=== PATIENT | male | born 1950 | race Caucasian/White ===

== ENCOUNTER 2016-09-16 10:54 | Emergency (ER) | payer OTHER, MEDICARE ==
[~2016-09-16] VITALS: Ht 175.3 cm; Wt 81.5 kg
[~2016-09-16 10:54] MED LIST: JUICE PLUS PO; OMEP20CA9 PO
[2016-09-16 11:08] VITALS: TEMP 36.6; Ht 175.3 cm; Wt 81.5 kg
[2016-09-16] MEDS ORDERED: NUTR-218 PO (11:25)
[2016-09-16] MEDS ORDERED: FERR1TAB23 PO (11:25)
--- NOTE | 2016-09-16 12:23 | EMERGENCY ROOM VISIT NOTE ---
History Report prepared by Wayne: Baron Gonzales Under the Supervision of: Dr. Nba Perry M.D. First contact with patient: 11:59 Chief Complaint: TESTICULAR PAIN Stated Complaint: PAIN IN R TESTICLE Nursing Triage Summary: Triage note: pt reports pain and swelling in right testilce x 2 weeks. History of Present Illness The patient is a 66 year old male who presents to the Emergency Room with complaints of waxing and waning right testicular pain that started a few weeks ago. He thought when the pain started it would go away on its own. He notes that he has been having back problems for the past few weeks and has been seeing a chiropractor. He thought that maybe the symptoms were related. However , he presented to the ED today because the discomfort was worse yesterday and he was very uncomfortable for most of the day. He denies any urinary symptoms or difficulty moving his bowels at this time. Source of History: patient Onset: past few weeks Position: other (right testicle) Timing: waxes/wanes Associated Symptoms: + back pain, No urinary symptoms Note: Denies: difficulty moving bowels Review of Systems All systems have been listed, reviewed, and are negative other than those previously mentioned. Please see Additional Medical History Sheet. Past Medical & Surgical Medical Problems: (1) Acid reflux Surgical Problems: (1) Melanoma Family History FH: hypertension FH: testicular cancer Heart disease Social History Smoking Status: Never Smoker Marital Status: Housing Status: lives with family Occupation Status: employed Current/Historical Medications Scheduled Ferrous Sulfate (Iron), 325 MG PO DAILY Nutritional Supplements (Juice Plus Fibre), 2 TAB PO BID Omeprazole (Prilosec), 20 MG PO DAILY Allergies Coded Allergies: Bacitracin (Verified Allergy, Unknown, HIVES, 09/16/16) Neomycin (Verified Allergy, Unknown, HIVES, 09/16/16) Polymyxin B (Verified Allergy, Unknown, HIVES, 09/16/16) Physical Exam Vital Signs Date Time Temp Pulse Resp B/P Pulse Ox O2 Delivery O2 Flow Rate FiO2 09/16/16 13:15 60 16 131/93 98 Room Air 09/16/16 11:08 36.6 60 18 159/82 96 Room Air Physical Exam GENERAL: Patient awake, alert, oriented x 3. Patient follows commands. Patient does not appear toxic. Patient is adequately hydrated and well- nourished. SKIN: No erythema, pallor, cyanosis or rash HEENT: Normal head, pupils equal, reactive to light and accommodation. Neck: Without adenopathy, no neck vein distention. LUNGS: Clear to auscultation. No wheezes, no rales, no rhonchi. HEART: No murmurs. No gallops. No rubs ABDOMEN: No masses, no rebound, no hepatomegaly or splenomegaly. BACK: Patient has some vague tenderness over lower lumbar spine, no step-offs, no point tenderness. GENITALIA: High-riding right testicle with some tenderness and questionable hernia on right side. No color changes to the skin. No urethral discharge. EXTREMITIES: No signs of trauma. No pedal or pretibial edema. No calf or thigh tenderness. NEUROLOGIC: Cranial nerves II-XII within normal limits. No gross motor sensory function deficits. Medical Decision & Procedures ER Provider Diagnostic Interpretation: US results are interpretations by the radiologist and per my review. SCROTAL ULTRASOUND CLINICAL HISTORY: Right testicular pain. COMPARISON STUDY: None. TECHNIQUE: Grayscale and color and duplex Doppler sonography of the scrotum was performed. FINDINGS: The right testis measures 4.3 x 2.6 x 3.4 cm and the left measures 4.3 x 2.4 x 3.1 cm. Color flow within each testis is symmetric. There is no testicular mass. There is no evidence for epididymitis. There is a small right hydrocele. A fat-containing right inguinal hernia is noted which was partially reducible. IMPRESSION: 1. Normal sonographic appearance of the testes. No evidence of torsion. No testicular mass. 2. No evidence of epididymitis. 3. Small right hydrocele. 4. Partially reducible fat-containing right inguinal hernia. Electronically signed by: Kody Zimmerman M.D. 09/16/2016 1:52 PM Dictated Date/Time: 09/16/2016 1:50 PM Laboratory Results 09/16/16 12:20 09/16/16 12:20 Test 09/16/16 12:20 09/16/16 13:10 Red Blood Count 5.02 M/uL (4.7-6.1) Mean Corpuscular Volume 83.7 fL (80-100) Mean Corpuscular Hemoglobin 28.5 pg (25-34) Mean Corpuscular Hemoglobin Concent 34.0 g/dl (32-36) RDW Standard Deviation 39.9 fL (36.4-46.3) RDW Coefficient of Variation 13.3 % (11.5-14.5) Mean Platelet Volume 10.1 fL (7.4-10.4) Anion Gap 7.0 mmol/L (3-11) Est Creatinine Clear Calc Drug Dose 75.7 ml/min Estimated GFR () 95.1 Estimated GFR (Non- 82.0 BUN/Creatinine Ratio 13.8 (10-20) Calcium Level 8.7 mg/dl (8.5-10.1) Urine Color YELLOW Urine Appearance CLEAR (CLEAR) Urine pH 7.5 (4.5-7.5) Urine Specific [place] 1.018 (1.000-1.030) Urine Protein NEG (NEG) Urine Glucose (UA) NEG (NEG) Urine Ketones NEG (NEG) Urine Occult Blood NEG (NEG) Urine Nitrite NEG (NEG) Urine Bilirubin NEG (NEG) Urine Urobilinogen NEG (NEG) Urine Leukocyte Esterase NEG (NEG) Laboratory results as stated above per my review. ED Course 1156: Past medical records reviewed. The patient was evaluated in room C8. A complete history and physical examination was performed. 1445: Upon reevaluation, the patient appeared to have improvement of his symptoms. I discussed today's findings with him. He verbalized agreement of the treatment plan. The patient was discharged home. Medical Decision Differential diagnoses include testicular torsion, inguinal hernia, testicular cancer, or orchitis. Multiple labs and urinalysis were obtained. Ultrasound revealed right inguinal hernia and a small right hydrocele but no testicular torsion or neoplastic appearing lesions. The patient was reassured. The patient is to follow-up with his family physician and a general surgery. He is to take over-the- counter pain medicines as needed. Impression Primary Impression: Right inguinal hernia Scribe Attestation The scribe's documentation has been prepared under my direction and personally reviewed by me in its entirety. I confirm that the note above accurately reflects all work, treatment, procedures, and medical decision making performed by me. Departure Information Dispostion Home / Self-Care Referrals Thiago Rivera D.O. (PCP) Forms HOME CARE DOCUMENTATION FORM, IMPORTANT VISIT INFORMATION, WORK / SCHOOL INSTRUCTIONS Patient Instructions ED Hernia Inguinal, My [facility] Additional Instructions Tylenol or ibuprofen as needed for pain. No lifting greater than 20 pounds. Follow-up with Dr. Rivera within the next 10 days..
[2016-09-16 12:47] LABS: MEAN CELL VOLUME 83.7 fL (80-100); MEAN CORPUSCULAR HEMOGLOBIN 28.5 pg (25-34); MEAN PLATELET VOLUME 10.1 fL (7.4-10.4); PLATELET COUNT 241 K/uL (130-400); RED BLOOD COUNT 5.02 M/uL (4.7-6.1); WHITE BLOOD COUNT 6.18 K/uL (4.8-10.8)
[2016-09-16 13:06] LABS: BUN/CREATININE RATIO 13.8 (10-20); CALCIUM 8.7 mg/dl (8.5-10.1); CREATININE 0.96 mg/dl (0.60-1.40); POTASSIUM 4.3 mmol/L (3.5-5.1)
[2016-09-16 13:36] LABS: MANUAL MICROSCOPIC REQUIRED? NO; REVIEW REQ? NO; URINE APPEARANCE CLEAR (CLEAR); URINE BILIRUBIN NEG (NEG); URINE COLOR YELLOW; URINE NITRITE NEG (NEG); URINE PH 7.5 (4.5-7.5); URINE SPECIFIC GRAVITY 1.018 (1.000-1.030); UROBILINOGEN NEG (NEG); ZZUR CULT IF INDIC CLEAN CATCH NO
--- NOTE | 2016-09-16 13:54 | DIAGNOSTIC IMAGING REPORT ---
SCROTAL ULTRASOUND CLINICAL HISTORY: Right testicular pain. COMPARISON STUDY: None. TECHNIQUE: Grayscale and color and duplex Doppler sonography of the scrotum was performed. FINDINGS: The right testis measures 4.3 x 2.6 x 3.4 cm and the left measures 4.3 x 2.4 x 3.1 cm. Color flow within each testis is symmetric. There is no testicular mass. There is no evidence for epididymitis. There is a small right hydrocele. A fat-containing right inguinal hernia is noted which was partially reducible. IMPRESSION: 1. Normal sonographic appearance of the testes. No evidence of torsion. No testicular mass. 2. No evidence of epididymitis. 3. Small right hydrocele. 4. Partially reducible fat-containing right inguinal hernia. Electronically signed by: Kody Zimmerman M.D. 09/16/2016 1:52 PM Dictated Date/Time: 09/16/2016 1:50 PM
[2016-09-16 15:40] VITALS: BP 153/86; PULSE 56; O2SAT 96
== END 2016-09-16 15:41 | disposition home or self-care (01) ==
LOC: C.EDB 10:55 → C.EDC 15:41
DX: K40.90 Unilateral inguinal hernia, without obstruction or gangrene, not specified as recurrent (principal); K21.9 Gastro-esophageal reflux disease without esophagitis; Z82.49 Family history of ischemic heart disease and other diseases of the circulatory system